=== PATIENT | female | born 1960 | race Two or more races ===

== ENCOUNTER 2017-01-23 07:45 | Emergency (ER) | payer OTHER ==
[2017-01-23 07:53] VITALS: BP 138/88; PULSE 84; TEMP 98.5; BMI 22.6
--- NOTE | 2017-01-23 08:20 | PDOC ---
Attending Attestation - Resident Resident Name: AlexisAdonis - HPI HPI: 01/26/17 21:55 Pt presents to the ED complaining of chronic epigastric pain. Patient presented to the ED because she has recently moved to the area and needs follow up. Denies acute problems. - Physicial Exam PE: 01/26/17 21:56 Agree with resident's exam. Abdomen is non tender on my exam. - Medical Decision Making 01/26/17 21:57 Pt presents to the ED requesting GI and PMD follow up. Will discharge home.
--- NOTE | 2017-01-23 08:27 | PDOC ---
History of Present Illness - General Chief Complaint: Pain Stated Complaint: PAIN UPPER LEFT SIDE Time Seen by Provider: 01/23/17 07:58 History Source: Patient - History of Present Illness Initial Comments: 01/23/17 08:22 Patient is a 56F with history of HTN, chronic pancreatitis chronic sinusitis, and H pylori here today complaining of LUQ for the past month. She was worked up by her primary care office with labs and CT scans. The labs were positive for H pylori, and patient was prescribed triple therapy which she has been taking for 3 days. She's been feeling better since then. She says that she's in very little pain now and wants to go to work. CT scan shows a possible fatty liver. Lipase was mildly elevated to 110. Patient has no real complaints at this time. She denies nausea, vomiting, fevers and chills. She states that she called a specialist on , who had not called her back. She also recently moved from the [place] to [place], and now wants the number of a local specialist. Past History - Past Medical History Allergies/Adverse Reactions: Allergies Allergy/AdvReac Type Severity Reaction Status Date / Time No Known Allergies Allergy Verified 01/23/17 07:47 Cardiac Disorders: Yes (Heart Mummur) HTN: Yes Hypercholesterolemia: Yes Other medical history: Chronic Sinisitis - Immunization History Immunization Up to Date: Yes - Suicide/Smoking/Psychosocial Hx Smoking History: Never smoked Have you smoked in the past 12 months: No Information on smoking cessation initiated: No Hx Alcohol Use: No Drug/Substance Use Hx: No Substance Use Type: None Review of Systems - Review of Systems Comments:: 01/23/17 08:27 GENERAL/CONSTITUTIONAL: No fever or chills. No weakness. HEAD, EYES, EARS, NOSE AND THROAT: No change in vision. No ear pain or discharge. No sore throat. CARDIOVASCULAR: No chest pain or shortness of breath RESPIRATORY: No cough, wheezing, or hemoptysis. GASTROINTESTINAL: No nausea, vomiting, diarrhea or constipation. GENITOURINARY: No dysuria, frequency, or change in urination. SKIN: No rash NEUROLOGIC: No headache, vertigo, loss of consciousness, or change in strength/ sensation. HEMATOLOGIC/LYMPHATIC: No anemia, easy bleeding, or history of blood clots. ALLERGIC/IMMUNOLOGIC: No hives or skin allergy. *Physical Exam - Vital Signs Last Vital Signs Temp Pulse Resp BP Pulse Ox 98.5 F 84 15 138/88 100 01/23/17 07:47 01/23/17 07:47 01/23/17 07:47 01/23/17 07:47 01/23/17 07:47 - Physical Exam Comments: 01/23/17 08:27 GENERAL: Awake, alert, and fully oriented, in no acute distress HEAD: No signs of trauma, normocephalic, atraumatic EYES: PERRLA, EOMI, sclera anicteric, conjunctiva clear ENT: Auricles normal inspection, hearing grossly normal, nares patent, oropharynx clear without exudates. Moist mucosa LUNGS: No distress, speaks full sentences, clear to auscultation bilaterally HEART: Regular rate and rhythm, normal S1 and S2, no murmurs, rubs or gallops, peripheral pulses normal and equal bilaterally. ABDOMEN: Soft, nontender, normoactive bowel sounds. No guarding, no rebound. No masses EXTREMITIES: Normal inspection, Normal range of motion, no edema. No clubbing or cyanosis. NEUROLOGICAL: Cranial nerves II through XII grossly intact. Normal speech, no focal sensorimotor deficits SKIN: Warm, Dry, normal turgor, no rashes or lesions noted. Medical Decision Making - Medical Decision Making 01/23/17 08:27 Patient is a 56F with history of chronic pancreatitis, H pylori gastritis, and HTN here today complaining of LUQ abdominal pain. Vital signs stable. Patient is currently already on appropriate treatment. Patient was advised to stop taking naproxen until she can follow up with her primary care physician. Will discharge with information for local GI and PMD. *DC/Admit/Observation/Transfer Diagnosis at time of Disposition: Abdominal pain Qualifiers: Abdominal location: left upper quadrant Qualified Code(s): R10.12 - Left upper quadrant pain - Discharge Dispostion Disposition: HOME Condition at time of disposition: Good Admit: No - Referrals Referrals: Addy Upton MD [Staff Physician] - Olman Burgos MD [Staff Physician] - - Patient Instructions Printed Discharge Instructions: DI for Helicobacter Pylori Infection Additional Instructions: Please call the GI specialist and primary care doctor in the referrals in your discharge paperwork. Please return if your abdominal pain worsens or you develop fevers, chills or vomiting. If you feel like working, you are able to, but I've included a note for today and tomorrow off if you so choose. -Dr Espinoza - Post Discharge Activity Forms/Work/School Notes: Back to Work
== END 2017-01-23 08:40 | disposition home or self-care (01) ==
LOC: JER 07:45
DX: R10.12 Left upper quadrant pain (principal); I10 Essential (primary) hypertension; E78.00 Pure hypercholesterolemia, unspecified; J32.8 Other chronic sinusitis
CPT/HCPCS: 99281-25